=== PATIENT | female | born 1975 | race Caucasian/White ===

== ENCOUNTER → 2019-06-27 12:14 | Outpatient (CLI) | payer BC, SELFPAY ==
--- NOTE | 2019-06-27 | DI.US.S_ITS ---
PROCEDURE: US OB <= 14 WEEKS FETUS INDICATIONS: INITIAL SIZING AND DATING OUTSIDE/PRIOR DATING DATA: Last menstrual period (LMP): 05/28/19. LMP-based estimated date of delivery (CAMI): 02/22/20. First dating scan (date and location): 06/27/19. Estimated date of delivery (CAMI) from first dating scan: 02/19/20. TECHNIQUE: Real-time scanning was performed of the fetus and maternal pelvic organs, with image documentation. Endovaginal scanning was also performed to better visualize the fetus and maternal ovaries. COMPARISON: None. FINDINGS: Embryo: A crown-rump length measures 4 mm corresponding to 6 weeks 1 day. Embryonic heart rate measured at 117 beats per minute. Measurement variability in dating: +/- 4 weeks by LMP, +/- 7 days by mean sac diameter (use before 6 weeks gestation if crown-rump length not able to be measured), +/- 5 days by crown-rump length (up to 8 weeks 6 days gestation), +/- 7 days by crown-rump length (up to 13 weeks 6 days gestation). Maternal organs: Corpus luteal cyst involves the right ovary and the left ovary is not visualized. Limited images through the kidneys demonstrate no hydronephrosis. IMPRESSION: 6 week 1 day single living IUP. Dictated by: Wilder FALCON Interpreted: Kamryn Joyce MD on 06/27/2019 at 14:24 Approved by: Kamryn Joyce M.D. on 06/27/2019 at 14:42
== END ==
PROVIDERS: PCP Student in an Organized Health Care Education/Training Program; Visit Provider Student in an Organized Health Care Education/Training Program
DX: O34.81 Maternal care for other abnormalities of pelvic organs, first trimester (principal); N83.11 Corpus luteum cyst of right ovary; Z3A.01 Less than 8 weeks gestation of pregnancy
CPT/HCPCS: 76801; 76817

== ENCOUNTER → 2019-08-11 14:09 | Outpatient (CLI) | payer BC, SELFPAY ==
--- NOTE | 2019-08-11 | DI.US.S_ITS ---
PROCEDURE: US OB <= 14 WEEKS FETUS INDICATIONS: SIZE, DATES, ADVANCED MATERNAL AGE OUTSIDE/PRIOR DATING DATA: Last menstrual period (LMP): 05/18/19. LMP-based estimated date of delivery (CAMI): 02/22/20. First dating scan (date and location): 06/27/19. Estimated date of delivery (CAMI) from first dating scan: 02/19/20. TECHNIQUE: Real-time scanning was performed of the fetus and maternal pelvic organs, with image documentation. COMPARISON: [facility], OB <= 14 WEEKS FETUS, 06/27/2019, 12:31. FINDINGS: Embryo: A single living intrauterine is present. Detectable cardiac activity at 168 beats per minute. Biparietal diameter 2.5 cm, 14 weeks, one day Head circumference 9.0 cm, 14 weeks, zero days Abdominal circumference 7.3 cm, 13 weeks, 6 days Femur length 1.0 cm, 12 weeks, 6 days Composite gestational age 13 weeks, 5 days Expected gestational age by initial ultrasound 12 weeks, 4 days The placenta is developing posterior, low, and to the maternal left. Measurement variability in dating: +/- 4 weeks by LMP, +/- 7 days by mean sac diameter (use before 6 weeks gestation if crown-rump length not able to be measured), +/- 5 days by crown-rump length (up to 8 weeks 6 days gestation), +/- 7 days by crown-rump length (up to 13 weeks 6 days gestation). Maternal organs: Ovaries are not seen. Limited images through the kidneys demonstrate no hydronephrosis. IMPRESSION: 1. Single living intrauterine with a composite gestational age 8 days ahead of the initially assigned gestational age. 2. Early placental position is low. Dictated by: Genesis Navarro M.D. on 08/11/2019 at 16:12 Approved by: Genesis Navarro M.D. on 08/11/2019 at 16:22
== END ==
PROVIDERS: PCP Student in an Organized Health Care Education/Training Program; Visit Provider Student in an Organized Health Care Education/Training Program
DX: Z34.81 Encounter for supervision of other normal pregnancy, first trimester (principal); Z3A.13 13 weeks gestation of pregnancy
CPT/HCPCS: 76801

== ENCOUNTER → 2019-10-05 16:19 | Outpatient (CLI) | payer BC, SELFPAY ==
--- NOTE | 2019-10-05 | DI.US.S_ITS ---
PROCEDURE: OB >= 14 WEEKS FETUS INDICATIONS: 20 WEEK ANATOMICAL SURVEY OUTSIDE/PRIOR DATING DATA: Last menstrual period (LMP): 05/18/19. LMP-based estimated date of delivery (CAMI): 02/22/20. First dating scan (date and location): 06/27/19. Estimated date of delivery (CAMI) from first dating scan: 02/19/20. TECHNIQUE: Real-time scanning was performed of the fetus, with image documentation and biometric measurements. COMPARISON: [facility] OB <= 14 WEEKS FETUS, 08/11/2019, 14:30. [facility] OB <= 14 WEEKS FETUS, 06/27/2019, 12:31. FINDINGS: General: A single living intrauterine gestation is present. Presentation: Variable. Placenta: Placental position is posterior, without previa. Amniotic fluid index: 14.4 cm, normal range is 5-24 cm. heart rate: 144 beats per minute. Maternal cervical canal: 3.8 cm long. Normal lower limit is 2.5 cm. biometrics: Biparietal diameter: 21 weeks 3 days Head circumference: 21 weeks 3 days Abdominal circumference: 21 weeks 2 days Femur length: 21 weeks 2 days Estimated gestational age from initial scan: 20 weeks 3 days Composite gestational age from present scan: 21 weeks 3 days Estimated weight and percentile: 413 g; 80 percentile Measurement variability for biometric dating: +/- 7 days from 14 weeks to 15 weeks 6 days gestation, +/- 10 days from 16 weeks to 21 weeks 6 days gestation, +/- 2 weeks from 22 weeks to 27 weeks 6 days gestation, +/- 3 weeks for 28 weeks gestation or later. weight reference: 4500 g or EFW >90/95% is considered macrosomia or large for gestational age. EFW <10% is small for gestational age. EFW 5% or less is considered intra-uterine growth restriction. Anatomic survey: Neuro: Ventricles are non-dilated at less than 10 mm. Cisterna magna is normal at 3-11 mm. Cerebellum is normal in size and morphology. Nuchal skin fold: Normal at less than 6 mm between 14-21 weeks gestational age. Face: Nose and lips, facial profile are normal. Spine: Sacral spine not well visualized. Heart: 4 chamber heart and cardiac outflow tracts suboptimally visualized. Diaphragm: Diaphragm is intact. Stomach: Left-sided stomach is present. Kidneys: No hydronephrosis. Normal is less than 5 mm in 2nd trimester, less than 7 mm in 3rd trimester. Cord: 3-vessel cord has orthotopic insertion. Bladder: Normal in size. Extremities: All 4 extremities identified. IMPRESSION: 1. Single living intrauterine demonstrating interval growth with estimated weight at the 80th percentile. 2. Sacral spine, 4 chamber heart and cardiac outflow tracts are not well seen; otherwise normal anatomic survey. Recommend a short-term followup repeat study for further evaluation if clinically indicated. Dictated by: Wilder Thomas [facility] Interpreted: Fred Richey MD on 10/06/2019 at 10:12 Approved by: Fred Richey M.D. on 10/06/2019 at 15:44
== END ==
PROVIDERS: PCP Student in an Organized Health Care Education/Training Program; Visit Provider Student in an Organized Health Care Education/Training Program
DX: Z36.89 Encounter for other specified antenatal screening (principal); Z3A.21 21 weeks gestation of pregnancy
CPT/HCPCS: 76811

== ENCOUNTER → 2019-11-06 12:13 | Outpatient (CLI) | payer BC, SELFPAY ==
--- NOTE | 2019-11-06 | DI.US.S_ITS ---
PROCEDURE: US OB FOLLOW UP INDICATIONS: RE-EVALUATE HEART, LUMBO-SACRAL SPINE OUTSIDE/PRIOR DATING DATA: Last menstrual period (LMP): 05/18/2019. LMP-based estimated date of delivery (CAMI): 02/22/2020. First dating scan (date and location): 06/27/[address]. [facility]. Estimated date of delivery (CAMI) from first dating scan: 02/19/2020. TECHNIQUE: Real-time scanning was performed of the fetus, with image documentation and biometric measurements. COMPARISON: 10/05/2019. FINDINGS: General: A single living intrauterine gestation is present. Presentation: Vertex. Placenta: Placental position is posterior, without previa. Amniotic fluid index: 18.7 cm, normal range is 5-24 cm. heart rate: 153 beats per minute. Maternal cervical canal: 4.4 cm long. Normal lower limit is 2.5 cm. Estimated gestational age from initial scan: 25 weeks 0 days. Composite gestational age from present scan: Not calculated Measurement variability for biometric dating: +/- 7 days from 14 weeks to 15 weeks 6 days gestation, +/- 10 days from 16 weeks to 21 weeks 6 days gestation, +/- 2 weeks from 22 weeks to 27 weeks 6 days gestation, +/- 3 weeks for 28 weeks gestation or later. weight reference: 4500 g or EFW >90/95% is considered macrosomia or large for gestational age. EFW <10% is small for gestational age. EFW 5% or less is considered intra-uterine growth restriction. Sacral spine is now seen. The lumbar and sacral spine are normal appearance. 4 chamber had outflow tracts are normal in appearance. The right ventricle moderate band is noted. Question of mild right ventricular wall thickening. Trace pericardial fluid. IMPRESSION: 1. Cifuentes living intrauterine at 25 weeks 0/7 days based on prior ultrasound. 2. Normal placenta and amniotic fluid. 3. Trace pericardial fluid. Question of right ventricular wall thickening. 4 chamber heart view and outlet tracts appear normal. Recommend attention on follow up ultrasound. 4. Sacral spine is normal in appearance. Dictated by: Donald Pearson M.D. on 11/06/2019 at 17:11 Approved by: Donald Pearson M.D. on 11/06/2019 at 17:22
== END ==
PROVIDERS: PCP Student in an Organized Health Care Education/Training Program; Visit Provider Student in an Organized Health Care Education/Training Program
DX: Z36.2 Encounter for other antenatal screening follow-up (principal); Z3A.25 25 weeks gestation of pregnancy
CPT/HCPCS: 76816

== ENCOUNTER → 2019-12-08 09:41 | Outpatient (CLI) | payer BC, SELFPAY ==
--- NOTE | 2019-12-08 | DI.US.S_ITS ---
PROCEDURE: US OB LIMITED INDICATIONS: RIGHT VENTRICULAR WALL THICKENING OUTSIDE/PRIOR DATING DATA: Last menstrual period (LMP): 05/18/19. LMP-based estimated date of delivery (CAMI): 02/22/20. First dating scan (date and location): 06/27/19. Estimated date of delivery (CAMI) from first dating scan: 02/19/20. TECHNIQUE: Real-time scanning was performed of the fetus, with image documentation. Endovaginal scanning: Not performed COMPARISON: [facility], OB >= 14 WEEKS FETUS, 10/05/2019, 16:31. [facility] OB FOLLOW UP, 11/06/2019, 12:21. FINDINGS: A single living intrauterine gestation is present. Presentation: Vertex. Placenta: Placental position is posterior, without previa. Amniotic fluid index: 14.6 cm, normal range is 5-24 cm. heart rate: 140 beats per minute. Maternal cervical canal: 3.9 cm long. Normal lower limit is 2.5 cm. Estimated gestational age from initial scan: 29 weeks 4 days. Right ventricular wall thickness measures approximately 6 mm. There is minimal pericardial fluid remaining. IMPRESSION: Single living intrauterine fetus in vertex presentation. Normal REFUGIO Decrease in previous pericardial effusion since 11/06/19 Dictated by: Teddy Villasenor M.D. on 12/08/2019 at 17:23 Approved by: Teddy Villasenor M.D. on 12/08/2019 at 17:27
== END ==
PROVIDERS: PCP Student in an Organized Health Care Education/Training Program; Visit Provider Student in an Organized Health Care Education/Training Program
DX: O28.3 Abnormal ultrasonic finding on antenatal screening of mother (principal); Z3A.29 29 weeks gestation of pregnancy
CPT/HCPCS: 76815

== ENCOUNTER → 2020-01-26 15:36 | Outpatient (ROUT) | payer BC, SELFPAY | PROVIDERS: Visit Provider Student in an Organized Health Care Education/Training Program | DX: Z34.90 Encounter for supervision of normal pregnancy, unspecified, unspecified trimester (principal) | CPT/HCPCS: 87081 ==

== ENCOUNTER 2020-01-28 14:34 | Outpatient (CLI) | payer BC, SELFPAY | END 2020-01-28 15:17 | disposition home or self-care (01) | LOC: LABOR 15:13 → OB 01-29 11:52 | PROVIDERS: Referring Provider Student in an Organized Health Care Education/Training Program; Visit Provider Student in an Organized Health Care Education/Training Program | DX: O09.523 Supervision of elderly multigravida, third trimester (principal); O26.23 Pregnancy care for patient with recurrent pregnancy loss, third trimester; N89.8 Other specified noninflammatory disorders of vagina; Z3A.36 36 weeks gestation of pregnancy | CPT/HCPCS: 59025; 84112; G0378; G0379 ==

== ENCOUNTER → 2020-01-29 10:41 | Outpatient (CLI) | payer BC, SELFPAY ==
--- NOTE | 2020-01-29 | DI.US.S_ITS ---
PROCEDURE: US OB FOLLOW UP INDICATIONS: RECHECK HEART OUTSIDE/PRIOR DATING DATA: Last menstrual period (LMP): 05/18/19. LMP-based estimated date of delivery (CAMI): 02/22/20. First dating scan (date and location): 06/27/19. Estimated date of delivery (CAMI) from first dating scan: 02/19/20. TECHNIQUE: Real-time scanning was performed of the fetus, with image documentation and biometric measurements. Endovaginal scanning: No COMPARISON: [facility], OB FOLLOW UP, 11/06/2019, 12:21. FINDINGS: General: A single living intrauterine gestation is present. Presentation: Vertex. Placenta: Placental position is left fundal, without previa. Amniotic fluid index: 4.8 cm, normal range is 5-24 cm. heart rate: 150 beats per minute. Maternal cervical canal: Not well-seen. Estimated gestational age from initial scan: 37 weeks 0 days Other: Trace pericardial fluid present which may be physiologic. IMPRESSION: 1. Single living IUP redemonstrated and trace pericardial fluid present which maybe physiologic. 2. Amniotic fluid index measuring 4.8 cm which is less than the 5th percentile for gestational age. Correlate clinically. Dictated by: Wilder PARSONS Interpreted: Leo Mittal MD on 01/29/2020 at 13:51 Approved by: Leo Mittal M.D. on 02/01/2020 at 16:47
== END ==
PROVIDERS: PCP Student in an Organized Health Care Education/Training Program; Referring Provider Student in an Organized Health Care Education/Training Program; Visit Provider Student in an Organized Health Care Education/Training Program
DX: Z36.2 Encounter for other antenatal screening follow-up (principal); Z3A.37 37 weeks gestation of pregnancy
CPT/HCPCS: 76816

== ENCOUNTER → 2020-02-07 09:44 | Outpatient (CLI) | payer BC, SELFPAY ==
--- NOTE | 2020-02-07 | DI.US.S_ITS ---
PROCEDURE: US OB LIMITED INDICATIONS: REFUGIO OUTSIDE/PRIOR DATING DATA: Last menstrual period (LMP): 05/18/19. LMP-based estimated date of delivery (CAMI): 02/22/20. First dating scan (date and location): 06/27/19. Estimated date of delivery (CAMI) from first dating scan: 02/19/20.. TECHNIQUE: Real-time scanning was performed of the fetus, with image documentation and biometric measurements. COMPARISON: [facility], OB LIMITED, 12/08/2019, 10:10. [facility], OB FOLLOW UP, 01/29/2020, 11:35. FINDINGS: General: A single living intrauterine gestation is present. Presentation: Vertex. Placenta: Placental position is left, without previa. Amniotic fluid index: 18.2 cm, normal range is 5-24 cm. heart rate: 147 beats per minute. Maternal cervical canal: Not well-seen. Other: Trace pericardial fluid redemonstrated likely physiologic. IMPRESSION: Single living IUP redemonstrated and today's exam demonstrating normal amniotic fluid index measuring 18.2 cm. Dictated by: Wilder Thomas [facility] Interpreted: Ludwig Durand MD on 02/07/2020 at 11:22 Approved by: Ludwig Durand M.D. on 02/07/2020 at 15:55
== END ==
PROVIDERS: PCP Student in an Organized Health Care Education/Training Program; Referring Provider Student in an Organized Health Care Education/Training Program; Visit Provider Student in an Organized Health Care Education/Training Program
DX: Z36.89 Encounter for other specified antenatal screening (principal); O09.523 Supervision of elderly multigravida, third trimester; Z3A.38 38 weeks gestation of pregnancy
CPT/HCPCS: 59025; 76815

== ENCOUNTER 2020-02-09 12:26 | Outpatient (CLI) | payer BC, SELFPAY | END 2020-02-09 13:21 | disposition home or self-care (01) | LOC: LABOR 13:03 → OB 02-12 11:30 | PROVIDERS: PCP Student in an Organized Health Care Education/Training Program; Referring Provider Student in an Organized Health Care Education/Training Program; Visit Provider Student in an Organized Health Care Education/Training Program | DX: O09.523 Supervision of elderly multigravida, third trimester (principal); O26.23 Pregnancy care for patient with recurrent pregnancy loss, third trimester; Z3A.38 38 weeks gestation of pregnancy | CPT/HCPCS: 59025; G0378; G0379 ==

== ENCOUNTER 2020-02-14 01:22 | Inpatient (IN) | payer BC, SELFPAY ==
[2020-02-14 01:42] VITALS: BP 115/82
[2020-02-14] MEDS: LACTATED RINGERS 1,000 ML 1000 ML IV (01:45)
[2020-02-14 02:04] LABS: Add Manual Diff / Slide Review NO; Basophils Absolute Auto 100 /uL (0-100); Basophils Percent Auto 0.5 % (0-2); Eosinophils Absolute Auto 0 /uL (0-450); Eosinophils Percent Auto 0.2 % (2-4); Hematocrit 34.7 % (36-46); Hemoglobin 11.4 g/dL (12.0-16.0); Lymphocytes Absolute Auto 1900 /uL (1100-4500); Lymphocytes Percent Auto 13.7 % (25-40); Mean Corpuscular HGB Conc 32.9 % (30-36); Mean Corpuscular Hemoglobin 26.7 PG (26-34); Mean Corpuscular Volume 81.1 fL (80-100); Monocytes Absolute Auto 800 /uL (0-900); Monocytes Percent Auto 5.8 % (3-14); Neutrophils Absolute Auto 11300 /uL (1500-7000); Neutrophils Percent Auto 79.8 % (50-75); Platelet Count 270 X10^3/uL (150-400); Red Blood Cell Count 4.27 X10^6/uL (4.0-5.2); White Blood Cell Count 14.2 X10^3/uL (4.5-11.0)
[2020-02-14] MEDS: FENT 2MCG/ML BUPIV 0.125% EPI 200 MCG/100 ML PLAST..BAG 10 MCG EPIDURAL (03:00)
--- NOTE | 2020-02-14 07:37 | PM.OBHP.1 ---
OB HPI Date/Time Date of admission: 02/14/20 Date Patient Seen: 02/14/20 Time Patient Seen: 06:15 History of Present Condition Chief complaint: EVAL OF LABOR : 6 Para: 2 Estimated Date of Delivery: 02/19/20 Estimated Gestational Age (weeks): 39w2d Narrative: Venus Rangel is a 44 year old at 39w2d with CAMI of 02/19/20 per first trimester ultrasound. She presents with contractions every 2-5 minutes. Her course has been complicated by advanced maternal age. 1 hour Glucola was positive, 3 hour negative. Patient has been on a prophylactic diabetic diet, weight gain has been appropriate, 25 pounds, fundal hieghts appropriate. Anatomy scan initially was incomplete, follow-up study showed questionable right ventricular wall thickening and trace pericardial effusion. Surveillance ultrasounds x 2 showed reduction in the effusion, possibly physiologic. LABS/IMAGING: ABO AB positve, antibody negative on 06/23/19. Rubella immune. Hepatitis-B surface antigen negative. HIV, HSV 1 and 2 negative. GC/chlamydia negative. Treponemal antibody negative. Varicella titer positive. Pap smear plus HPV DNA negative on 07/24/19. Urine culture negative on 07/24/19. Hemoglobin/hematocrit 14.3/42.7 on 06/23/20. Repeat hemoglobin/hematocrit 11.6/34.4 on 01/26/20. TSH within normal limits. NIPT negative, 08/03/19, male. 1 hour Glucola 153 on 09/20/19, 3 hour glucola with one high value on 10/04/19, 155 at 2 hours. GBS negative on 01/26/20. Dating US: 06/27/19, within normal limits. Anatomy Scan: 10/05/19, incomplete. Follow up study on 11/06/19 showed question of right ventricular wall thickening and trace pericardial fluid. Surveillance ultrasounds for the pericardial fluid on 12/08/2019 01/29/2020 showed an overall reduction in fluid that may be physiologic. No further ventricular wall thickening was noted. OBSTETRIC HISTORY: # 1 Delivery date: 01/14/2012 Weeks Gestation: 6 Delivery type: SAB # 2 Delivery date: 01/13/2013 Weeks Gestation: 39 labor: no Delivery type: Hours of labor: 20 Anesthesia type: epidural Delivery location: [place], [place] Infant Sex: Female weight: 8lb 6oz Name: Sina # 3 Delivery date: 03/01/2015 Weeks Gestation: 38 labor: no Delivery type: Hours of labor: 4 Anesthesia type: epidural Delivery location: [place], [place] Sex: Female weight: 7lb 8oz Name: Mary Comments: Cord wrapped around her neck, fast delivery # 4 Delivery date: 06/15/2017 Weeks Gestation: 8 Delivery type: SAB # 5 Delivery date: 05/15/2018 Weeks Gestation: 6 Delivery type: SAB # 6 Comments: current GYNECOLOGICAL HISTORY: None PAST MEDICAL HISTORY: GERD Fatty liver disease PAST SURGICAL HISTORY: [place] teeth Tonsillectomy FAMILY HISTORY: Father, at 62 from [place] Mother: Diabetes, hypertension, depression Brother: Alcohol abuse, depression Paternal grandmother, paternal aunt, maternal aunt: Breast cancer SOCIAL HISTORY: Patient grew up in the [place], close-knit family. 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 They have 2 young daughters. Evaluation Evaluation Laboratory results: Laboratory Tests 02/14/20 02/14/20 01:45 01:45 WBC 14.2 H RBC 4.27 Hgb 11.4 L Hct 34.7 L MCV 81.1 MCH 26.7 MCHC 32.9 RDW 14.0 Plt Count 270 Neut % (Auto) 79.8 H Lymph % (Auto) 13.7 L Garrett % (Auto) 5.8 Eos % (Auto) 0.2 L Baso % (Auto) 0.5 Neut # (Auto) 89374 H Lymph # (Auto) 1900 Garrett # (Auto) 800 Eos # (Auto) 0 Baso # (Auto) 100 Blood Type AB Positive Antibody Screen Negative [facility] Social History (System 01/31/20 @ 08:50 by Shauna Taylor) Smoking Status: Never smoker Meds Home Medications and Allergies Home Medications Medication Instructions Recorded Confirmed Type omeprazole 20 mg PO DAILY 02/14/20 02/14/20 History Allergies Allergy/AdvReac Type Severity Reaction Status Date / Time No Known Drug Allergies Allergy Verified 02/14/20 01:56 Review of Systems Review of Systems ROS: Yes All systems reviewed with the patient and are negative except as otherwise documented Exam Narrative Exam Narrative: General: NAD Skin: Color unremarkable, no rash nor lesions HEENT: Neck supple with midline trachea Lungs: CTAB Heart: Normal rate, and regular rhythm, S1, S2 normal, no murmur, click, rub or gallop Abdomen: Gravid, soft, non-tender Extremities: No edema, no cyanosis Pelvis: Normal female external genitalia Presentation: vertex Cervix: 6/95/-2 Monitoring: Variability: Moderate Baseline: 135 Accelerations: Present Decelerations: Absent Contractions: Every 3-7 minutes Strength: Moderate Objective Labs Result Diagrams: 02/14/20 01:45 Labs: Laboratory Results - last 24 hr 02/14/20 02/14/20 01:45 01:45 WBC 14.2 H RBC 4.27 Hgb 11.4 L Hct 34.7 L MCV 81.1 MCH 26.7 MCHC 32.9 RDW 14.0 Plt Count 270 Neut % (Auto) 79.8 H Lymph % (Auto) 13.7 L Garrett % (Auto) 5.8 Eos % (Auto) 0.2 L Baso % (Auto) 0.5 Neut # (Auto) 60518 H Lymph # (Auto) 1900 Garrett # (Auto) 800 Eos # (Auto) 0 Baso # (Auto) 100 Blood Type AB Positive Antibody Screen Negative Assessment and Plan Assessment and Plan Assessment and Plan narrative: 1. IUP at 39w2d 2. 3. Advanced maternal age 4. Trace pericardial effusion, possibly physiologic 5. GERD, chronic, controlled 6. Fatty liver disease, chronic, normal LFTs 7. Active Labor Plan: Admit to Labor and delivery with routine orders. Anticipate vaginal delivery. Questions answered, appropriate consents will be signed.
--- NOTE | 2020-02-14 08:46 | PM.OBPNLAB ---
Date/Time Date Patient Seen: 02/14/20 Time Patient Seen: 08:46 Pain Control Pain control: epidural Comments: Epidural just redosed. SROM with clear fluid in interval period. Comfortable on peanut ball. Pelvic Exam Dilation (cm): 10 Effacement (%): 100 station: -2 Amniotic membrane status: Ruptured Comments: clear Contractions Contraction frequency (min): 3 Contraction duration (min): 1 Contraction pattern: Regular Contraction intensity: Moderate Status status: Category ll Heart Rate Baseline: 135 Monitor Accelerations: Present Monitor Decelerations: Variable Monitor Variability: Moderate Assessment and Plan Assessment: active labor Comments: Will start pushing.
--- NOTE | 2020-02-14 10:16 | PM.OBPRVD ---
Labor & Delivery Delivery date: 02/14/20 Intrapartal events: None Cervical ripening method: none Induction method: none Delivery monitor: external FHT Route of delivery: L&D Laceration Description: Perineal - 2nd Degree Delivery repair: vicryl Estimated blood loss (mL): 250 Anesthesia type: Epidural Narrative: On 02/14/2020, this 44 year old at 39w2d, GBS negative female under epidural anesthesia delivered a viable male with unknown weight and scores of 8/9. Delivery was via normal spontaneous vaginal delivery at 9:04 a.m. There was no nuchal cord. Cord clamped and cut and handed to mother. Cord blood sent for analysis. Intact placenta with three-vessel cord was delivered spontaneously at 9:10 a.m. Uterus, cervix, vagina, and rectum explored and found to be intact except for a secondary perineal laceration that was repaired with 3-0 Vicryl in the usual fashion. A minor right sided periurethral laceration was left unrepaired as it was not bleeding. Estimated blood loss 250 cc. Patient remained in the delivery room in stable condition. Infant remained in the delivery room stable condition. Plan for aftercare: Routine care.
[2020-02-14] MEDS: DERMOPLAST SPRAY 20% 60 ML 1 SPRAY TOP (15:43)
[2020-02-14] MEDS: IBUPROFEN 600 MG TABLET PO (15:45)
[2020-02-14] MEDS: LANOLIN OINT 7 GM 1 APPLIC TOP (20:05)
[2020-02-15 06:32] LABS: Add Manual Diff / Slide Review NO; Basophils Absolute Auto 0 /uL (0-100); Basophils Percent Auto 0.3 % (0-2); Eosinophils Absolute Auto 0 /uL (0-450); Eosinophils Percent Auto 0.4 % (2-4); Hematocrit 30.4 % (36-46); Hemoglobin 10.1 g/dL (12.0-16.0); Lymphocytes Absolute Auto 2100 /uL (1100-4500); Lymphocytes Percent Auto 15.8 % (25-40); Mean Corpuscular HGB Conc 33.1 % (30-36); Mean Corpuscular Volume 81.6 fL (80-100); Monocytes Absolute Auto 900 /uL (0-900); Neutrophils Absolute Auto 10000 /uL (1500-7000); Neutrophils Percent Auto 76.5 % (50-75); Platelet Count 233 X10^3/uL (150-400); Red Blood Cell Count 3.73 X10^6/uL (4.0-5.2); Red Cell Distribution Width 14.6 % (11.6-14.8)
--- NOTE | 2020-02-15 08:18 | P.DS_ITS ---
Discharge Providers Provider Date of admission: 02/14/20 01:22 Discharge Date: 02/15/20 Primary care physician: Paulina Ramos MD Consults: 02/15/20 10:14 Consult to Artist And Repertoire Manager Routine Comment: Discharge provider: Paulina Ramos MD Summary Hospital Course Date Patient Seen: 02/15/20 Time Patient Seen: 08:19 Procedures: , 02/14/20, Dr. Ramos, no complications Hospital Course: Unremarkable. Mother is well. Tolerating full diet with no nausea vomiting. Ambulating well. Lochia less than menses. On day of disch arge, she is afebrile with stable vital signs throughout. Discharge diagnoses: 1. 44 yo 2. Status post at 39w2d 3. Advanced maternal age Time spent on Discharge and Coordination of post-hospital care: 35 minutes Peripartum Data Delivery Method: Natural Vaginal Laceration description: Perineal - 2nd Degree complications: none Status at Discharge Cognitive/behavioral status at discharge: at baseline, oriented Functional status at discharge: independent ambulation Overall status at discharge: patient is progressing back to baseline Time Spent with Patient Time attestation: Total time spent providing and/or coordinating discharge services: Objective Labs Result Diagrams: 02/15/20 06:15 Labs: Laboratory Results - last 24 hr 02/15/20 06:15 WBC 13.0 H RBC 3.73 L Hgb 10.1 L Hct 30.4 L MCV 81.6 MCH 27.0 MCHC 33.1 RDW 14.6 Plt Count 233 Neut % (Auto) 76.5 H Lymph % (Auto) 15.8 L Mckean % (Auto) 7.0 Eos % (Auto) 0.4 L Baso % (Auto) 0.3 Neut # (Auto) 53612 H Lymph # (Auto) 2100 Mckean # (Auto) 900 Eos # (Auto) 0 Baso # (Auto) 0 Exam Narrative Exam Narrative: General: NAD Skin: Color unremarkable, no rash nor lesions HEENT: Neck supple with midline trachea Lungs: CTAB Heart: Normal rate, and regular rhythm, S1, S2 normal, no murmur, click, rub or gallop Abdomen: FF at U-1, soft, non-tender, ND, + BS Extremities: No clubbing, no edema, no cyanosis Discharge Plan Discharge Plan Patient Disposition: Home Discharge orders & Medications Prescriptions: New docusate sodium [DOK] 100 mg Capsule 100 mg PO BID PRN (Reason: constipation) Qty: 15 RF: 1 ibuprofen 600 mg Tablet 600 mg PO Q6HR PRN (Reason: Pain, Mild (1-3)) Qty: 45 RF: 1 Prenatabs Rx 29 mg iron- 1 mg Tablet 1 tab PO DAILY Qty: 90 RF: 4 Discontinued omeprazole 20 mg Capsule,Delayed Release(Dr/Ec) 20 mg PO DAILY RF: 0 Follow up/Referrals: Paulina Ramos MD [Primary Care Provider] - Diet/Activity/Treatments Diet: Diet as Tolerated Activity: pelvic rest x 6 weeks Skin/Wound/Dressing Care Report to your healthcare provider any signs of infection, such as:: chills, fever and increased pain Discharge Data Primary Care Provider: Paulina Ramos
[2020-02-15 09:55] VITALS: BP 110/59; PULSE 84; RESP 18; TEMP 36.2
== END 2020-02-15 12:30 | disposition home or self-care (01) | DRG 807 ==
PROVIDERS: Admitting Provider Student in an Organized Health Care Education/Training Program; PCP Student in an Organized Health Care Education/Training Program; Referring Provider Student in an Organized Health Care Education/Training Program; Visit Provider Student in an Organized Health Care Education/Training Program
DX: O70.1 Second degree perineal laceration during delivery (principal); Z37.0 Single live birth; Z3A.39 39 weeks gestation of pregnancy
CPT/HCPCS: 01967; 36415; 59050; 76815; 85025; 86850; 86900; 86901; G0379